=== PATIENT | male | born 1990 | race African-American/Black ===

== ENCOUNTER 2018-05-18 21:23 | Emergency (ER) | payer SELFPAY ==
[~2018-05-18] VITALS: Ht 160 cm; Wt 59.0 kg
--- NOTE | 2018-05-18 21:36 | NUR ---
PT TAKEN TO BED 7
[2018-05-18 21:44] VITALS: BP 121/56
--- NOTE | 2018-05-18 21:44 | NUR ---
PT MOVED TO BED 3
--- NOTE | 2018-05-18 21:46 | NUR ---
PT BEDSIDE TRIAGED IN ED BED 3, EDMD AWARE OF PT STATUS
--- NOTE | 2018-05-18 21:52 | NUR ---
PT UNABLE TO PROVIDE URINE AT THIS TIME, PROVIDED W/ WATER PT STATES HE WILL "TRY LATER".
--- NOTE | 2018-05-18 22:05 | NUR ---
Dr. Gamboa evaluating patient at bedside.
--- NOTE | 2018-05-18 22:14 | NUR ---
BIB SELF WANTING TO DETOX FROM [facility], STATES HE LAST TOOK [facility] THIS AM, PT IS PARANOID, EXCESSIVE SPEECH AND THINKS "EVERYONE IS WATCHING AND FOLLOWING" HIM. PT IS AWAKE AND LAYING IN BED. PMH HTN
--- NOTE | 2018-05-18 23:23 | NUR ---
PT C/O NAUSEA AND HEADACHE AT THIS TIME. ER MD MADE AWARE.
--- NOTE | 2018-05-19 00:04 | NUR ---
PT SLEEPING IN BED AT THIS TIME, PENDING D/C PER DR JADE TILL A LATER TIME.
--- NOTE | 2018-05-19 02:00 | NUR ---
PT IN BED RESTING,COMFORT NEEDS MET AT THIS TIME.
[2018-05-19 03:25] VITALS: BP 112/63
--- NOTE | 2018-05-19 03:25 | NUR ---
Patient discharged with v/s stable. Written and verbal after care instructions given and explained. Patient verbalized understanding. Ambulatory with steady gait. All questions addressed prior to discharge. Advised to follow up with PMD. Alcohol tx pack and homeless pack given to pt.
== END 2018-05-19 03:25 | disposition home or self-care (01) ==
LOC: MED 21:23
DX: F22 Delusional disorders (principal); F15.90 Other stimulant use, unspecified, uncomplicated; I10 Essential (primary) hypertension
CPT/HCPCS: 99283